=== PATIENT | female | born 1960 | race Caucasian/White ===

== ENCOUNTER 2019-03-09 19:57 | Inpatient (IN) ==
[2019-03-09] MEDS ORDERED: ASPIRIN PO ONE (20:23)
[2019-03-09] MEDS ORDERED: LOPRESSOR IV ONE ×2 (20:24→20:39)
[2019-03-09] MEDS ORDERED: NS 1,000 ML IV ONE (20:25)
--- NOTE | 2019-03-09 20:40 | PROVIDER DOCUMENTATION ---
This chart was entered by Vivian Penny Scribe, acting as scribe for Teddy Mckeon MD. HPI-Abdominal Pain/GI Problem - General Chief Complaint: Abdominal Pain Stated Complaint: V/D/ Time Seen by Provider: 03/09/19 20:20 Source: patient Allergies/Adverse Reactions: Patient Allergies Allergy/AdvReac Type Severity Reaction Status Date / Time No Known Allergies Allergy Verified 03/09/19 20:04 - History of Present Illness-ABD Nature of Presenting Problems: pt is a 58 yowf who presents wuth rapid heart rate in 150's,nausea, vomiting, diarrhea,intermittent chest pain, and cold sweats for past several days pt was recently dx w/pneumonia and stomach virus, on zpac in last week. pt also sts had dysuria sunday and went to herbal shop, was given aquaflora to try and sts that when she took that it made her nvd worse. Pt is a smoker .25/day. occ alcohol user and denies drug use. pt has allergy to penicillin. no pcp. Shortly after arrival patient givne 5mg IV Lopressor with resolution of tachycardia. Severity in ED: reports: mild Onset/Duration: reports: 3 days ago, last week Timing: reports: still present, intermittent (cp) Activities at Onset: reports: none Modifying Factors: improves with: nothing Associated Symptoms: reports: chest pain, diarrhea, genitourinary problems, nausea, vomiting Last BM: unsure Review of Systems - Adult - REVIEW OF SYSTEMS - ADULT Constitutional: reports: see HPI, other (cold sweats) Eyes: reports: no symptoms reported Ears, Nose, Mouth & Throat: reports: no symptoms reported Cardiovascular: reports: see HPI, chest pain. denies: palpitations, poor circulation, syncope Respiratory: reports: no symptoms reported Gastrointestinal: reports: see HPI, diarrhea, nausea, vomiting. denies: difficulty swallowing, frequent heartburn, rectal bleeding Genitourinary: reports: see HPI, dysuria. denies: flank pain, urinary retention, urgency Musculoskeletal: reports: no symptoms reported Integumentary: reports: no symptoms reported Neurological: reports: no symptoms reported Psychiatric: reports: no symptoms reported Endocrine: reports: no symptoms reported Hematologic/Lymphatic: reports: no symptoms reported Allergic/Immunologic: reports: no symptoms reported All Other Systems: Reviewed and Negative Past History - Adult - PAST MEDICAL HISTORY-ADULT Review of Records: reports: Nursing Assessment Review, Medications Reviewed, Social history reviewed & non-contributory. Major Childhood Illnesses: reports: denies history Cardiovascular: reports: arrhythmia Respiratory: reports: pneumonia (last week dx) Gastrointestinal: reports: denies history Obstetrical/Gynecological: reports: denies history Genitourinary: reports: denies history Musculoskeletal: reports: denies history Neurological: reports: denies history Endocrine/Immune: reports: denies history Other Conditions: reports: denies history - PRIOR SURGERIES/PROCEDURES Surgical/Procedure History: reports: hysterectomy, other - IMMUNIZATION STATUS Childhood Immunizations: See Nurse Assessment Flu Vaccine: See Nurse Assessment - FAMILY HISTORY Family History: reviewed, not pertinent - SOCIAL HISTORY Smoking: cigarettes, less than 1 pack/day Provider spent 3-5 mins advising pt. on dangers of tobacco.: Discussed manners to quit use, and f/u contacts for add'l counseling. Substance Use: denies (drug use), alcohol Alcohol Use Frequency: occasionally Physical Exam-General - PHYSICAL EXAM-ADULT Initial Vital Signs Reviewed: Yes - CONSTITUTIONAL General Appearance: alert, no apparent distress, obese. negative: lethargic, slow to respond, obtunded - EYES Eyes: PERRL/EOMI, pink conjunctivae - HEAD, EARS, NOSE, MOUTH & THROAT HENMT: normocephalic/atraumatic, moist mucous membranes - NECK Neck: non-tender, full range of motion, supple, normal inspection - RESPIRATORY Respiratory: chest non-tender, lungs clear, normal breath sounds - CARDIOVASCULAR Cardiovascular: normal peripheral pulses, no edema, no gallop, no JVD, no murmur , tachycardia. negative: regular rate, rhythm, JVD, bradycardia, extra beats, irregularly irregular - GASTROINTESTINAL (ABDOMEN) Abdominal Exam: normal bowel sounds, non tender, soft - LYMPHATIC Lymphatic: no adenopathy - MUSCULOSKELETAL Back Exam: normal inspection, no CVA tenderness, no vertebral tenderness Extremity: normal range of motion, non-tender, normal inspection Peripheral Pulses: radial (R): 2+, radial (L): 2+ - SKIN Integumentary: normal color, normal turgor, warm/dry. negative: diaphoresis - NEUROLOGIC Neurologic: grossly normal, no motor/sensory deficits - PSYCHIATRIC Psych/Mental Status: normal mood/affect, normal thought content, normal thought process, oriented x 3 Progress - PLAN OF CARE/RESULTS Progress/Plan/Lab Results: Vital Signs - 8 hr 03/09/19 20:02 Temperature 98.0 F Pulse Rate 158 H Respiratory Rate 18 Blood Pressure 113/76 O2 Sat by Pulse Oximetry 96 Orders Category Date Time Status Cardiac Monitoring DIRECTED Care 03/09/19 20:24 Active Oxygen Therapy- ED Nursing DIRECTED Care 03/09/19 20:24 Active Saline Loc NOW Care 03/09/19 20:24 Active NPO Diet 03/09/19 20:05 Active CBC WITH DIFF [HEME] Stat Lab 03/09/19 20:05 Ordered CK PROFILE [SP CHEM] Stat Lab 03/09/19 20:24 Uncollected COMPREHENSIVE METABOLIC PANEL [CHEM] Stat Lab 03/09/19 20:05 Ordered LIPASE [CHEM] Stat Lab 03/09/19 20:05 Ordered PRO B-NATRIURETIC PEPTIDE Stat Lab 03/09/19 20:24 Uncollected PROTIME WITH INR [COAG] Stat Lab 03/09/19 20:24 Uncollected PTT [COAG] Stat Lab 03/09/19 20:24 Uncollected TROPONIN T Stat Lab 03/09/19 20:24 Uncollected ua [URINALYSIS PL W/POSS RFLX CULT] [URINALYSIS] Stat Lab 03/09/19 20:23 Uncollected Aspirin Med 03/09/19 20:23 Once 325 mg PO NOW ONE Metoprolol [Lopressor] Med 03/09/19 20:24 Once 5 mg IV NOW ONE Ns 1000 ml IV Bolus X1 Med 03/09/19 20:25 Ordered 0.9% Sodium Chloride Inj [Ns] 1,000 ml IV 999 mls/hr Abd Pain/OB <20 weeks Stat Oth 03/09/19 20:05 Ordered CP/SOB/Palp >45 yrs of Age Stat Oth 03/09/19 20:23 Ordered EKG [EKG] Stat Ther 03/09/19 20:24 Ordered Result Diagrams: 03/09/19 21:18 03/09/19 20:18 - REASSESSMENT Reassessment #1 Time Reassessed: 21:00 Status: improving (pt svt converted w/5mg IV lopressor) - EKG 1 Time of EKG reading by physician:: 20:54 EKG Read and Signed by:: Teddy Mckeon EKG Interpretation (*Must complete 3 of following elements*): Abnormal Rate: 94 Rhythm: NSR [place]: left QRS: LBB OH Interval: normal ST Wave: normal - XRAY 1 XRAY Study: Chest Impression: See EMR Report (CHEST-PORTABLE - 03/09/2019 INDICATION: cp, tachy COMPARISON: None FINDINGS: There is mild cardiomegaly. Pulmonary vascularity is grossly normal. No infiltrates or edema. No pneumothorax or pleural effusion. There is a calcified granuloma in the left apex. IMPRESSION: Mild cardiomegaly. Electronically signed by Rashid Wang 03/09/2019 9:14 PM) Comparison with other Films: no prior study XRAY Interpretation: cardiomegaly, increased vascular markings - CT/MRI 1 CT Study: Abdomen, Angiogram, Pelvis, other Impression: Abnormal, See EMR Report (Impression: CHF. Nonspecific mild to moderate mediastinal adenopathy and mild hilar adenopathy. Old grnaulomatous disease. IMpression: Passive congestion of the liver, mild fatty liver. MIld diffuse gallbladder wall thickening w/out calcified gallstones identified. COnsiderations would include passive congestion related gallbladder wall thickening or cholecystitis. Consider right upper quadrant ultrasound for further eval.) Comparison with other Films: no prior study CT Results: CT chest:CHF, no PE - CONSULTS/PCP/HOSPITALIST Notification #1 *Consult/PCP/Hospitalist*: Dr. Coello/ [facility] hospitalist Time Discussed: 01:16 Consult Disposition: Admit Departure - Departure Date of Disposition Decision: 03/10/19 Time of Disposition Decision: 00:25 DIAGNOSIS: Paroxysmal tachycardia, Gallbladder disease CHF (congestive heart failure) Qualifiers: Heart failure type: other Qualified Code(s): I50.9 - Heart failure, unspecified Abdominal pain Qualifiers: Abdominal location: generalized Qualified Code(s): R10.84 - Generalized abdominal pain Disposition: ADMITTED INPATIENT 09 Certified Medical Emergency: Emergent Condition: Stable Referrals and Follow-Ups: None,PCP [Primary Care Provider] - - Critical Care Note This patient required my direct & personal management of CC.: No Attestation - Physician/ ROBERTA Attestation Patient care was provided by Advanced Practice Provider:: No The physician spent face to face time with patient:: Yes Advanced Practice Provider documentation review:: Supervising physician onsite and consulted in the evaluation and care of this patient. The physician did have a face to face encounter with the patient. This chart was documented by the indicated scribe, (Vivian Penny Scribe) and accurately reflects the services I performed and decisions made by me, Teddy Mckeon MD, as attested by the provider's signature.
[2019-03-09 20:49] LABS: INR 1.13; PROTIME 15.1 Seconds (11.0-16.0)
[2019-03-09 20:50] LABS: AGAP 14; ALKALINE PHOSPHATASE 124 U/L (32-104); BUN 23 mg/dL (8-22); CALCIUM 9.5 mg/dL (8.8-10.2); CHLORIDE 103 mmol/L (98-107); COSMO 279; CREATININE 0.7 mg/dL (0.5-0.9); ESTIMATED GFR > 60; GLUCOSE 151 mg/dL (70-104); GOT 179 U/L (10-30); GPT 203 U/L (10-36); LIPASE 23 U/L (13-60); POTASSIUM 4.4 mmol/L (3.5-5.1); PTT 32.3 Seconds (22.3-41.8); SODIUM 136 mmol/L (136-145); TCO2 19 mmol/L (25-35); TOTAL PROTEIN 6.5 g/dL (6.3-8.3)
--- NOTE | 2019-03-09 21:17 | Diag Imaging Result Doc PS360 ---
CHEST-PORTABLE - 03/09/2019 INDICATION: cp, tachy COMPARISON: None FINDINGS: There is mild cardiomegaly. Pulmonary vascularity is grossly normal. No infiltrates or edema. No pneumothorax or pleural effusion. There is a calcified granuloma in the left apex. IMPRESSION: Mild cardiomegaly. Electronically signed by Rashid Wang 03/09/2019 9:14 PM
[2019-03-09 21:29] LABS: BASO# 0.03 X1000 (0.0-0.2); BASO% 0.4 % (0.0-0.8); EOS# 0.08 X1000 (0.0-0.7); EOS% 1.1 % (0.0-10.0); HEMATOCRIT 32.2 % (37.0-47.0); HEMOGLOBIN 9.9 g/dL (12.0-16.0); IMM GRAN# 0.03 X1000 (0.0-0.04); IMM GRAN% 0.4 % (0.0-0.5); LYMPH# 1.25 X1000 (1.2-3.4); LYMPH% 17.1 % (20.5-51.1); MCH 27.7 PG (27-31); MCHC 30.7 g/dL (33-37); MCV 89.9 FL (81-99); MONO# 0.73 X1000 (0.11-0.59); MPV 11.6 FL (7.4-10.4); NEUT# 5.18 X1000 (1.4-6.5); PLT 209 X1000 (130-400); RBC 3.58 XMIL (4.2-5.4); RDW 15.6 % (11.5-14.5)
[2019-03-09 21:29] LABS: BILIRUBIN URINE NEGATIVE (NEGATIVE); BLOOD URINE NEGATIVE (NEGATIVE); CLARITY CLEAR (CLEAR); COLOR YELLOW; GLUCOSE URINE NEGATIVE (NEGATIVE); KETONE URINE TRACE mg/dL (NEGATIVE); LEUKOCYTES URINE TRACE (NEGATIVE); NITRITE URINE NEGATIVE (NEGATIVE); PROTEIN URINE 1+(30 mg/dL) mg/dL (NEGATIVE); UROBILINOGEN URINE 1 mg/dL
[2019-03-09 21:35] LABS: URINE SOURCE CLEAN CATCH
[2019-03-09 21:36] LABS: URINE BACTERIA 2+ /HFP; URINE CAST NONE SEEN /LPF; URINE CRYSTAL CA OXALATE PRESENT /HPF; URINE EPITHELIAL CELLS >10 /HPF (<10); URINE RBC <10 /HPF (<10); URINE WBC <10 /HPF (<10); URINE YEAST NONE SEEN /HPF
--- NOTE | 2019-03-09 21:37 | EKG Report ---
Test Performed on : 03/09/2019 8:20:26 PM Test Reason : tachy] Blood Pressure : / mmHG Vent. Rate : 153 BPM Atrial Rate : 153 BPM P-R Int : 094 ms QRS Dur : 150 ms QT Int : 302 ms P-R-T Axes : 000 -53 111 degrees QTc Int : 482 ms Sinus tachycardia. with short WA Left axis deviation Left bundle branch block Abnormal ECG No previous ECGs available Unconfirmed Result
--- NOTE | 2019-03-09 21:38 | EKG Report ---
Test Performed on : 03/09/2019 8:53:24 PM Test Reason : tachy] Blood Pressure : / mmHG Vent. Rate : 094 BPM Atrial Rate : 094 BPM P-R Int : 128 ms QRS Dur : 154 ms QT Int : 428 ms P-R-T Axes : 038 -40 092 degrees QTc Int : 535 ms Normal sinus rhythm. Left axis deviation Left bundle branch block Abnormal ECG When compared with ECG of 09-MAR-2019 20:20, (Unconfirmed) Vent. rate has decreased BY 59 BPM Unconfirmed Result
[2019-03-09] MEDS ORDERED: LASIX IV ONE (23:03)
[2019-03-10] MEDS ORDERED: ZOSYN 3.375 GM in NS 50 ML IV ONE (00:30)
[2019-03-10] MEDS ORDERED: LASIX IV SCH (01:45)
[2019-03-10] MEDS ORDERED: NS 1,000 ML IV SCH (04:30)
--- NOTE | 2019-03-10 07:04 | HISTORY AND PHYSICAL ---
CHIEF COMPLAINT: Nausea and vomiting as well as diarrhea along with abdominal pains of recent onset. HISTORY OF PRESENT ILLNESS: Ms. Ralf Rose is a 58-year-old female, who has a history of herpes as well as peptic ulcer disease. The patient is not a good historian. However, she indicates in the last couple of weeks she has been back and forth with the medical clinic because of respiratory as well as GI symptoms. She has now decided to present to [place] [facility] because of nausea, vomiting, and diarrhea, as well as abdominal pains. She also describes having dysuria along with dizziness. When she presented to the ER, heart rate was about 158. The patient did receive 5 mg of IV Lopressor with resolution of the tachycardia. She had a CT scan of the abdomen done, and showed evidence of mild diffuse gallbladder wall thickening with consideration being that of passive congestion related to gallbladder wall thickening or cholecystitis. The patient has now been referred to [facility] for surgical evaluation. PAST MEDICAL HISTORY: Herpes as well as peptic ulcer disease. SOCIAL HISTORY: She does have a history of drug use in the past. However, she has quit drug use at this time. No alcohol. She smokes cigarettes. ALLERGIES: She indicates that she is allergic to an antibiotic. She does not know the name. FAMILY HISTORY: Positive for diabetes as well as hypertension. PAST SURGICAL HISTORY: She has had section as well as a list of surgery for laser surgery for precancerous lesion in the cervix. REVIEW OF SYSTEMS: Constitutional: No fevers. 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 Eyes: Blurred vision. ENT: No sore throat or hearing loss. Cardiovascular: She has chest pain. Respiratory: She has cough. : She has dysuria. Musculoskeletal: She has joint pains. Endocrine: No thyroid disease or diabetes. Psychiatric: She does have some depression. Dermatology: No skin lesions. Hematology: No bleeding problems. Allergy/Immunology: No symptoms suggestive of allergic rhinitis. PHYSICAL EXAMINATION: VITALS: Temperature 97.7 degrees, pulse 96, respirations 20, blood pressure 169/73, and oxygen saturation is 98%. HEENT: She is atraumatic, normocephalic. Pupils are equal, and poorly reactive to light. She is anicteric. Extraocular movements intact. No oral lesions noted. NECK: No lymphadenopathy or thyromegaly. CARDIOVASCULAR: S1-S2 tachycardic. RESPIRATORY: Evidence of good air entry bilaterally. ABDOMEN: Soft, nontender. No masses felt. EXTREMITIES: No evidence of edema. CENTRAL NERVOUS SYSTEM: No obvious focal deficit noted. LABORATORY DATA: WBC 7.3, hematocrit 32.2, and platelet count 209,000. INR is 1.13. Sodium 136, potassium 4.4, chloride 103, bicarb 19, BUN is 23, and creatinine 0.7, total bilirubin, 1.10. AST 179, ALT 203, alkaline phosphatase 124. ProBNP is 5094. UA shows 2+ bacteria. We traced WBCs. EKG shows normal sinus rhythm with left axis deviation, and also left bundle-branch block. Chest x-ray shows mild cardiomegaly. CTA of the abdomen and pelvis shows evidence of passive congestion of the liver with mild fatty liver, mild diffuse gallbladder wall thickening without calcified gallstones identified. Consideration to include passive congestion related to gallbladder wall thickening or cholecystitis. CT scan of the chest shows evidence of CHF with no evidence of PE. ASSESSMENT AND PLAN: 1. Acute gastroenteritis. Maintain patient on clear liquids, IV fluids, antiemetics, and then stool workup for WBC O P culture as well as C diff. 2. Paroxysmal tachycardia with left bundle branch block. We will place patient on telemetry, and follow up on serial cardiac enzymes and get Cardiology consult. 3. Elevated D-dimer. Chest CT does not show any evidence of PE. We will get Doppler studies of the lower extremities. 4. Probable CHF based on chest x-ray findings. CT scan of the chest finding as well as proBNP. We will request getting a 2D echo of the heart and we will use diuretics as needed. 5. Abnormal liver function test. Check hepatitis panel as well as abdominal ultrasound. 6. Probable gallbladder disease. I suspect that findings noted on abdominal CT is more likely due to passive congestion related to gallbladder wall thickening done rather acute cholecystitis. In any case, I have requested an abdominal ultrasound and also we will get surgical evaluation. 7. Dysuria. Check urine culture. 8. Peptic ulcer disease. Maintain patient on proton pump inhibitor. 9. Deep vein thrombosis prophylaxis. Sequential compression devices. cc: Hoang Coello MD [facility]
--- NOTE | 2019-03-10 07:35 | Diag Imaging Result Doc PS360 ---
EXAM: CT ANGIOGRAM THORAX/ABD/PELVIS INDICATION: sob,elevated d-dimer TECHNIQUE: This exam was performed using automated exposure control, adjustment of mA or kV according to patient size, and/or use of iterative reconstruction technique. Thin section axial images through the chest and 3-D MIPS were obtained. Standard axial images and coronal reformats through the abdomen and pelvis were obtained. COMPARISON: None. FINDINGS: CTA CHEST: There is no evidence of pulmonary embolism. There is no evidence of thoracic aortic aneurysm. The heart appears moderately enlarged. There is a calcified left hilar lymph node indicating prior granulomatous disease. There is mild to moderate mediastinal and hilar lymphadenopathy. This is nonspecific. There are a couple of calcified granulomata in the left upper lobe. There is subsegmental atelectasis in the lingula. There is mosaic attenuation seen throughout both lungs suggesting air trapping versus mild edema. There is a 7 mm noncalcified nodule at the periphery of the right lower lung zone. It is indeterminate but could represent a noncalcified granuloma. There is no pleural fluid collection and no pneumothorax. CT ABDOMEN/PELVIS: The gallbladder wall is diffusely thickened suggesting cholecystitis. No radiopaque gallstones can be identified. There is mild intrahepatic periportal edema suggesting passive congestion. The liver is grossly unremarkable, otherwise. No biliary dilatation is appreciated. The spleen, pancreas, adrenal glands, and kidneys are grossly unremarkable. Urinary bladder is largely nondistended and is grossly unremarkable, otherwise. The reproductive tract is grossly unremarkable as imaged. The appendix appears normal. The remainder of the GI tract is grossly unremarkable. IMPRESSION: 1.Cardiomegaly. 2.Mosaic attenuation throughout the chest suggesting air trapping and/or mild pulmonary edema. 3.Mild to moderate mediastinal and hilar lymphadenopathy, nonspecific. 4.Diffuse gallbladder wall thickening suggesting cholecystitis. Please correlate clinically. 5.Other incidental/nonacute findings detailed above. No evidence of pulmonary embolism. Electronically signed by Mitchell Penny 03/10/2019 7:32 AM
--- NOTE | 2019-03-10 07:53 | Diag Imaging Result Doc PS360 ---
EXAM: US ABDOMEN-COMPLETE 03/10/2019 HISTORY: abn lfts TECHNIQUE: Abdominal ultrasound COMMENT: The pancreatic head is normal in appearance as is the body. The tail is obscured. The visualized portions of the aorta and inferior vena cava are within normal limits. The liver is unremarkable in appearance. There is antegrade flow in the portal vein. The gallbladder demonstrates mild thickening of the wall without evidence of stones. There is a positive sonographic Mosley sign. There is no evidence of biliary dilatation the common bile duct measuring less than 4 mm. The kidneys are without evidence of hydronephrosis or mass. The spleen is not enlarged. There are no abnormal fluid collections. IMPRESSION: The possibility of acalculous cholecystitis cannot be excluded. Electronically signed by Angel Bledsoe 03/10/2019 7:51 AM
[2019-03-10] MEDS: PROTONIX PO SCH (08:44)
[2019-03-10] MEDS ORDERED: LOPRESSOR PO SCH (09:00)
--- NOTE | 2019-03-10 09:58 | PROGRESS NOTE ---
DATE: 03/10/2019 SUBJECTIVE: She reports that she feels a little better today. She has complained of diarrhea and some nausea; diarrhea apparently for 6 weeks, nausea for several days. She has some burning with urination. This is a 58-year-old female with a history of herpetic, as well as peptic ulcer disease. She is not a good historian. She has been back and forth to the Medical Clinic because of respiratory, as well as GI symptoms. Decided to present to the [place] ER because of nausea, vomiting, diarrhea, abdominal wall pains. Described having dysuria along with dizziness. Presented to the emergency room with heart rate of 158, received 5 mg IV Lopressor with resolution of her tachycardia. CT scan of the abdomen showed evidence of mild diffuse gallbladder wall thickening, consideration being passive congestion related to gallbladder wall thickening and cholecystitis, so came to here to [place]. She does have a history of drug use in the past, however she has quit drugs. She does not admit to any drug use now. She has herpes, as well as peptic ulcer disease. Today on exam, she is up, sitting up. She is drinking clear liquids without any problems. OBJECTIVE: Vital Signs: Temperature 98.9 degrees, pulse 120, respirations 18, blood pressure 129/85. Eyes: Pupils are equal and round. Lungs: Clear in all lung [place]. Cardiovascular exam: Regular rhythm and rate without murmur or S3. Abdomen: Soft. Skin: Warm and dry. LABORATORY DATA: On reviewing lab, white count 7300, hematocrit 32, platelet count 209,000. Sodium 136, potassium 4.4, chloride 103, bicarbonate 19. BUN 23, creatinine 0.7. Blood sugar 151. AST is 179, ALT is 203, alkaline phosphatase 124. Troponin 1st set was less than 0.01, 2nd set was 0.019. Urinalysis unremarkable, except for 2+ bacteria. X-RAYS: 1. Chest x-ray: Mild cardiomegaly, otherwise lung [place] were clear. 2. Chest and abdominal pelvic CT angiogram: Cardiomegaly, mosaic attenuation throughout the chest suggestive of trapping or mild pulmonary edema. Mild to moderate mediastinal hilar lymphadenopathy, nonspecific. Diffuse gallbladder wall thickening suggestive of cholecystitis. 3. Abdominal ultrasound: The possibility of acalculous cholecystitis cannot be excluded. ASSESSMENT AND PLAN: 1. Dr. Madrid has been consulted. Cardiology is involved, Dr. Em. The patient currently getting normal saline at 75 mL an hour, on Zosyn 3.375 grams intravenous, got 1 dose yesterday, Lopressor 50 mg b.i.d. So, possibility of cholecystitis acalculous. We will see what Dr. Madrid says. 2. Some tachycardia; sounds like it was sinus tachycardia. Her rate appears to be controlled. 3. She complains of dysuria. We will see what cultures reveal. She has a set of blood cultures and urine culture. 4. Nausea and vomiting. She is on clear liquids at this time. Nausea seems to be better. She is complaining of loose stools. I think we can send a stool for Clostridium difficile. cc: Tom Rick MD
--- NOTE | 2019-03-10 10:26 | EKG Report ---
Test Performed on : 03/10/2019 10:06:38 AM Test Reason : tachycardia Blood Pressure : / mmHG Vent. Rate : 120 BPM Atrial Rate : 120 BPM P-R Int : 118 ms QRS Dur : 158 ms QT Int : 380 ms P-R-T Axes : 044 -33 092 degrees QTc Int : 537 ms Sinus tachycardia. Left axis deviation Left bundle branch block Abnormal ECG When compared with ECG of 09-MAR-2019 20:53, (Unconfirmed) T wave inversion more evident in Lateral leads Unconfirmed Result
[2019-03-10] MEDS: ZOFRAN IV PRN ×2 (11:47→21:49)
--- NOTE | 2019-03-10 11:50 | CARDIOLOGY CONSULTATION ---
DATE: 03/10/2019 CHIEF COMPLAINT: Nausea, vomiting, abdominal pain. HISTORY OF PRESENT ILLNESS: The patient is a 58-year-old white female who presents with the above complaints. She is an extremely difficult historian. It sounds like for the last 2 to 3 weeks or so, she has had severe episodes of nausea and vomiting. The nausea has more recently persisted throughout the day. She is having 1 to 2 bouts of vomiting. She has had significant bouts of diarrhea that have been occurring throughout the day. She has had poor p.o. intake over that time course. It sounds like she has had some presentations to urgent care settings for evaluation of this. She reports still having a gallbladder. She is not aware of any fevers that she has had. She has no overt chest pain. When asked where her pain is, she seems to be pointing in the left upper epigastric area, as well as the right upper quadrants. PAST MEDICAL HISTORY: Significant for peptic ulcer disease per the patient. She reports no other history. SOCIAL HISTORY: She does smoke. FAMILY HISTORY: Significant for hypertension. REVIEW OF SYSTEMS: A 10-system review of systems is negative, except for those things mentioned in the HPI. PHYSICAL EXAMINATION: Vital Signs: She is afebrile. Heart rate has been running anywhere from the 90s to the low 100s predominantly. Her blood pressure is 129/85. On presentation, it was 113/76. General: She is in moderate distress secondary to abdominal pain. HEENT: Oropharynx is moist. She has poor dentition. Eye examination shows pink conjunctivae, white sclerae. Neck: No obvious thyromegaly or thyroid tenderness. Cardiovascular: She sounds to be in a regular rate and rhythm. She has no obvious murmurs. She has no S3. She has no lower extremity edema. Chest: Sounds clear bilaterally. She has no increased work of breathing. Abdomen: Diffusely tender, but much more so in the epigastric, and more severely in the right upper quadrant. She does not have any overt rebound. Bowel sounds are present. Skin: Warm and dry throughout. Neurological: She is moving all extremities well. She has no lateralizing deficits. Psychiatric: Alert, orient, pleasant. Normal mood and affect. PERTINENT DATA: Chest, abdomen, and pelvis CTA shows cardiomegaly. There is mosaic attenuation throughout the chest, suggesting air trapping or mild pulmonary edema. She has [id number] mediastinal and hilar lymphadenopathy that is nonspecific. She has diffuse gallbladder wall thickening, suggesting cholecystitis. Her chest x-ray demonstrates mild cardiomegaly. Her EKG at 2052 yesterday shows sinus rhythm with a left bundle-branch block. Her subsequent EKG on 03/10/2019 at 1006 shows sinus tachycardia with a left bundle-branch block. I do not have any old EKGs to compare to. Her laboratory data demonstrates a white count of 7.3 yesterday, hematocrit 32, platelet count 209,000. Her D-dimer is 1.84. Her sodium is 136, potassium 4.4, BUN 23, creatinine 0.7. AST 179, ALT 203. Her proBNP is 5094. Her troponin is normal. Her albumin is 4.0. Her lipase was 23. ASSESSMENT: Ms. Rose is a 58-year-old female who presents with abdominal pain, nausea, and vomiting. PLAN: At this point, we will check an echocardiogram. I believe most likely, her symptoms are suggestive of cholecystitis as evidenced by her CTA. Will follow up on the results of the echo. She has a left bundle-branch block, but given normal cardiac enzymes, it is likely not acute. We will follow up and evaluate wall motion via the echo. cc: Mick Em MD
--- NOTE | 2019-03-10 20:36 | ECHO REPORT ---
ORDER DATE: 03/10/2019 MEASUREMENTS: Septal thickness 0.8, left ventricular internal diameter in diastole 7.1, posterior wall thickness 0.8, left ventricular internal diameter in systole 6.5, aortic root 3.0, left atrium 4.4. SUMMARY: 1. Adequate quality study. Intravenous echo contrast agent Optison was utilized to enhance endocardial definition. 2. Aortic valve is trileaflet and opens normally on 2-dimensional images. The peak gradient across the aortic valve is less than 5 mmHg. Mitral, tricuspid, and pulmonic valves are without evidence of structural abnormality with moderate to severe mitral regurgitation in the setting of left ventricular enlargement, moderate to severe tricuspid regurgitation in setting of right ventricular enlargement, and mild pulmonic insufficiency. The estimated systolic PA pressure by Doppler is 70 to 75 mmHg suggesting, moderate to severe pulmonary hypertension. The aortic root is normal size. 3. Moderate left ventricular enlargement with normal wall thickness demonstrated. The estimated left ventricular ejection fraction is approximately 10 to 15 percent in the setting of akinesis of the anteroseptal region, septal dyskinesis, akinesis of the basal and mid inferior vera, and mild inferolateral hypokinesis. The left atrium is mildly to moderately enlarged. The right atrium is mildly enlarged. The right ventricle is mildly enlarged. 4. No pericardial effusion. 5. Appearance of inferior vena cava suggests elevated central venous pressure. CONCLUSIONS: 1. Moderate to severe mitral regurgitation in the setting of left ventricular enlargement. 2. Moderate to severe tricuspid regurgitation with moderate to severe pulmonary hypertension by Doppler. 3. Moderate left ventricular enlargement with estimated left ventricular ejection fraction approximately 10 to 15 percent, with septal dyskinesis, anteroseptal akinesis, basal to mid inferior akinesis, and mild inferolateral hypokinesis. 4. Moderate left atrial enlargement. 5. Mild right atrial enlargement and mild right ventricular enlargement. 6. Elevated central venous pressure is suggested. cc: MD Hoang Wing MD
[2019-03-10] MEDS ORDERED: COZAAR PO SCH (21:00)
--- NOTE | 2019-03-10 21:47 | GENERAL SURGERY CONSULTATION ---
DATE: 03/10/2019 CHIEF COMPLAINT: Nausea, vomiting, and diarrhea. REASON FOR CONSULTATION: Possible gallbladder disease. HISTORY OF PRESENT ILLNESS: This 58-year-old female who presents with approximately 48 hours of nausea, vomiting, and diarrhea. She has had some colicky abdominal pain. She denies any sick contacts. No unusual diet of late. She has chronic respiratory symptoms. Some vague GI complaints in the past. She denies any GI bleeding. She has never had a colonoscopy. She underwent a cardiac workup. CT scan showed some pulmonary edema and possible underlying lung disease and thickening of the gallbladder. Followup ultrasound showed thickening of the gallbladder but no stones and normal caliber common bile duct. She apparently has a history of trauma that led to a cardiac arrest in the distant past at a young age. She does not see a PCP regularly. PAST MEDICAL HISTORY: Peptic ulcer disease and herpes. SURGICAL HISTORY: She has had and apparently LEEP type procedure for precancerous cervical cancer. SOCIAL HISTORY: She does not work. She does have a history of drugs in the past. She does smoke cigarettes. Denies alcohol. FAMILY HISTORY: Diabetes and hypertension. MEDICATIONS: Negative for anticoagulants. REVIEW OF SYSTEMS: Ten point review of system was performed and negative except for what is mentioned in the HPI. PHYSICAL EXAMINATION: Vital Signs: She is afebrile. Pulse 87, blood pressure 102/73, oxygen saturation 99% on room air. General: She is moving about the room without any discomfort and in no acute distress. HEENT: No scleral icterus. Neck: No cervical mass. Cardiovascular: Normal rate. Pulmonary: No increased work of breathing. Abdomen: Soft, nontender. Integument: Warm, dry without jaundice. Psychiatric: Appropriate affect. Neurologic: No gross deficits or asterixis. LABORATORY DATA: White count normal at 7, hematocrit 32, platelets 209,000. INR is 1.13. Creatinine 0.7. Her bilirubin was 1.10. AST and ALT were elevated at 179 and 203. Alkaline phosphatase 124. Troponins have been negative. Her proBNP was 5094. Lactate was normal at 1.2. Lipase 23. Urinalysis shows some trace white blood cells, negative for nitrites and leukocytes. IMAGING: I reviewed her CT scan and her ultrasound. ASSESSMENT AND PLAN: This is a 58-year-old female who presented with vague gastrointestinal complaints. Currently, her symptoms seem to have resolved. There is some suggestion of gallbladder wall thickening on both her CT scan and her ultrasound. She is also being worked up from a cardiology perspective and undergoing echocardiogram for concerns of volume overload and heart failure. We will follow this workup along as I do not have any acute findings on her abdominal examination, but she may ultimately benefit from a cholecystectomy. I will follow along her cardiac workup for plans for possible cholecystectomy in the future. cc: Elie Barrientos MD
[2019-03-10] MEDS: LOPRESSOR PO SCH (21:48)
[2019-03-11 07:09] LABS: IRON SATURATION 14 %; TIBC 336 ug/dL; TOTAL IRON 46 ug/dL (49-151); UNBOUND IRON 290 ug/dL (112-346)
[2019-03-11] MEDS: PROTONIX PO SCH (07:12)
[2019-03-11 07:14] LABS: AGAP 13; BUN 22 mg/dL (8-22); CHLORIDE 100 mmol/L (98-107); COSMO 274; CREATININE 0.8 mg/dL (0.5-0.9); ESTIMATED GFR > 60; GLUCOSE 113 mg/dL (70-104); MAGNESIUM 1.8 mg/dL (1.5-2.7); POTASSIUM 3.9 mmol/L (3.5-5.1); SODIUM 135 mmol/L (136-145); TCO2 22 mmol/L (25-35)
[2019-03-11 07:28] LABS: FERRITIN 358 ng/mL (13-150)
--- NOTE | 2019-03-11 09:45 | PROGRESS NOTE ---
DATE: 03/11/2019 SUBJECTIVE: Ms Rose says that she feels worse. Feels there is more sour taste. She does not want to take proton pump inhibitors. Obviously she is concerned about her gallbladder. OBJECTIVE: Temperature 97.5 degrees, pulse 120, respirations 24, blood pressure 106/77. Pupils are equal and round. Lungs are clear in all lung [place]. Cardiovascular exam: Regular rhythm and rate without murmur or S3. ASSESSMENT AND PLAN: 1. A 58-year-old presented with vague gastrointestinal complaints. Currently her symptoms seem to have resolved but she states feels more sour today. Some suggestive of gallbladder thickening on both her CT and ultrasound. She is also being worked up at the present time with Cardiology. 2. Pulmonary venous hypertension. Question of some volume overload. Cardiology involved. 3. Sounds like she has acid reflux type symptoms. She does not like to take the stomach medicines. She is on Protonix 40 mg daily. She is on metoprolol 25 mg b.i.d., Cozaar 12.5 mg at bedtime, Lasix 40 mg IV daily. Her chest x-ray from 03/09/2019, mild cardiomegaly. We will repeat another chest x-ray in the morning. cc: Tom Rick MD
[2019-03-11] MEDS: LASIX IV SCH (09:46)
[2019-03-11] MEDS: LOPRESSOR PO SCH ×2 (09:46→21:13)
[2019-03-11] MEDS: ZOFRAN IV PRN ×3 (10:19→23:53)
--- NOTE | 2019-03-11 11:13 | Diag Imaging Result Doc PS360 ---
EXAM: CHEST-2 VIEWS 03/11/2019 HISTORY: pulmonary hypertension TECHNIQUE: PA and lateral chest COMMENT: There is cardiomegaly and increased pulmonary vascularity. There is interstitial pulmonary edema with some alveolar opacity in the left base. This is much worse than on 03/09/2019. IMPRESSION: Pulmonary edema and cardiomegaly. Electronically signed by Angel Bledsoe 03/11/2019 11:11 AM
[2019-03-11 11:27] LABS: HEMATOCRIT 35.4 % (37.0-47.0); HEMOGLOBIN 10.9 g/dL (12.0-16.0); MCHC 30.8 g/dL (33-37); MPV 11.8 FL (7.4-10.4); RBC 3.89 XMIL (4.2-5.4); RDW 15.7 % (11.5-14.5); WBC 6.43 X1000 (4.8-10.8)
--- NOTE | 2019-03-11 12:08 | EKG Report ---
Test Performed on : 03/11/2019 11:45:08 AM Test Reason : chest pain Blood Pressure : / mmHG Vent. Rate : 092 BPM Atrial Rate : 092 BPM P-R Int : 138 ms QRS Dur : 162 ms QT Int : 428 ms P-R-T Axes : 036 -32 097 degrees QTc Int : 529 ms Normal sinus rhythm. Left axis deviation Left bundle branch block Abnormal ECG When compared with ECG of 10-MAR-2019 10:06, No significant change was found Confirmed by Eliseo MELGAR, P.J.M ([id number]) on 03/12/2019 7:56:30 PM
--- NOTE | 2019-03-11 18:51 | Extremity Venous Study ---
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 REQUESTING PHYSICIAN: Hoang Coello MD INDICATIONS: Elevated D-dimer. FINDINGS: The deep and superficial veins of the bilateral lower extremities were visualized along their course. All vessels were compressible with forward flow, although the flow does appear pulsatile with no evidence of intraluminal thrombus. SUMMARY: No deep or superficial venous thrombosis in bilateral lower extremities. Pulsatile waveforms would suggest a more central process for venous hypertension. cc: MD Hoang Alonso MD
[2019-03-11] MEDS: COZAAR PO SCH (21:13)
--- NOTE | 2019-03-11 22:00 | CARDIOLOGY PROGRESS NOTE ---
DATE: 03/11/2019 SUBJECTIVE: The patient continues to have some episodes of abdominal pain. Presently she has no complaints. OBJECTIVE: On physical examination she is afebrile. Her heart rates are fluctuant. She seems anywhere from the 80s to the 120s. Blood pressure 127/85 most recently, but she did have some systolics in the 90s. Her intake and output are difficult to track, as she is limited intake and output recorded. Generally she is in no acute distress. Cardiovascularly she sounds to be in a regular rate and rhythm. She has warm and well-perfused extremities with no edema. Her chest exam is clear bilaterally. She has no increased work of breathing. Her abdomen is soft, but diffusely tender to palpation. LABORATORY DATA: Her proBNP is 3841, which is down from 5094. Sodium 135, potassium 3.9, BUN 22, creatinine 0.8. Her ferritin was 358. Normal TSH and free T4. ASSESSMENT: Ms. Rose is a 58-year-old female who presents with abdominal pain. PLAN: Her echocardiogram demonstrated an EF of 10% to 15%; moderate to severe MR; dilated left ventricle. We have added in medications to her regimen in the form of losartan, metoprolol and Lasix. We will continue to try IV diuretics. Check her labs in the morning. Tentative plan will be to perform a cardiac catheterization prior to discharge. cc: Mick Em MD
--- NOTE | 2019-03-11 22:25 | GENERAL SURGERY PROGRESS NOTE ---
DATE: 03/11/2019 SUBJECTIVE: She seems okay. She is not really complaining of any abdominal pain. She has had some chest pain and left arm pain. She denies any further diarrhea. No fevers. OBJECTIVE: Vital Signs: Pulse has been 80s to 90s overnight, but as of this morning it is starting to creep up to the 120s. Blood pressure is 106/77, oxygen saturation is 98% on 3 L. General: She is alert. HEENT: No scleral icterus. Cardiovascular: Normal rate. Abdomen: Soft,nontender. Integument: Warm and dry without jaundice. LABORATORY DATA: I reviewed her labs. White count remains normal at 6, hematocrit is 35, creatinine is 0.8. Her troponins are normal. Her proBNP is downtrending. IMAGING: I have got a preliminary report on her echocardiogram that shows profound cardiomyopathy with an ejection fraction of 10% to 15%. ASSESSMENT AND PLAN: Based on these findings I suspect that she has if anything GI related causing symptoms. It is hepatic congestion from her heart failure. She would be very high risk for a cholecystectomy given the lack of her gallstones. I would recommend optimization of her cardiac output. Her abdominal exam is benign. She does not have peritonitis and we will follow along, but based off her echocardiogram she has severe mitral regurgitation, severe tricuspid regurgitation, left ventricular enlargement with hypokinesis, an ejection fraction of 10% to 15, and elevation of her central venous pressures. cc: Elie Barrientos MD
[2019-03-12 07:02] LABS: AGAP 12; ALB/GLOB RATIO 1.4; ALBUMIN 3.3 g/dL (3.5-5.0); ALKALINE PHOSPHATASE 82 U/L (32-104); BUN 17 mg/dL (8-22); CALCIUM 8.7 mg/dL (8.8-10.2); CHLORIDE 99 mmol/L (98-107); COSMO 270; CREATININE 0.8 mg/dL (0.5-0.9); ESTIMATED GFR > 60; GLUCOSE 102 mg/dL (70-104); GOT 94 U/L (10-30); GPT 139 U/L (10-36); POTASSIUM 3.4 mmol/L (3.5-5.1); SODIUM 134 mmol/L (136-145); TCO2 23 mmol/L (25-35); TOTAL BILIRUBIN 0.84 mg/dL (0.20-1.00); TOTAL PROTEIN 5.7 g/dL (6.3-8.3)
--- NOTE | 2019-03-12 07:59 | EKG Report ---
Test Performed on : 03/12/2019 06:47:14 AM Test Reason : chest pain Blood Pressure : / mmHG Vent. Rate : 073 BPM Atrial Rate : 073 BPM P-R Int : 162 ms QRS Dur : 166 ms QT Int : 472 ms P-R-T Axes : 062 -29 097 degrees QTc Int : 519 ms Normal sinus rhythm. Possible Left atrial enlargement Left bundle branch block Abnormal ECG When compared with ECG of 11-MAR-2019 11:45, (Unconfirmed) No significant change was found Confirmed by Eliseo MELGAR, P.J.M ([id number]) on 03/12/2019 7:58:27 PM
--- NOTE | 2019-03-12 10:03 | PROGRESS NOTE ---
DATE: 03/12/2019 SUBJECTIVE: Ms. Rose still feels miserable. She is nauseated and still has discomfort in the right upper quadrant, tenderness in the right upper quadrant. Remains afebrile. OBJECTIVE: Vital signs: Temperature 98 degrees, 84 pulse, 20 respirations, 110/60. Lungs: Clear in all lung [place]. Cardiovascular: Regular rhythm and rate without murmur or S3. Abdomen: Soft. Skin: Warm and dry. Tenderness in the right upper quadrant and epigastric area. ASSESSMENT AND PLAN: 1. Gastrointestinal-related symptoms. Suspect that she would be a high risk for cholecystectomy given her lack of gallstones, so want to optimize her cardiac output. Dr. Barrientos following. 2. Profound cardiomyopathy with ejection fraction 10 to 15 percent. She has severe mitral regurgitation, dilated left ventricle, so Dr. Em is following. Cardiology has added medication to her regimen, losartan, metoprolol, and Lasix. Tentative plan is to do a heart catheterization before she is discharged home. REVIEW OF HER ORDERS: At the present time she is on Lasix 40 mg a day, Cozaar 12.5 mg at bedtime, Lopressor 25 mg b.i.d., Protonix 40 mg a day. REVIEW OF LABS: From yesterday, hematocrit 35, hemoglobin 10. Electrolytes today: Sodium 134, potassium 3.4, chloride 99, BUN 17, creatinine 0.8. AST was 94, ALT was 139. ProBNP 2424. cc: Tom Rick MD
[2019-03-12] MEDS: LASIX IV SCH (10:21)
[2019-03-12] MEDS: LOPRESSOR PO SCH ×2 (10:22→21:27)
[2019-03-12] MEDS: PROTONIX PO SCH (10:26)
[2019-03-12 13:10] LABS: HEPATITIS PROFILE ACUTE SEE COMMENTS
[2019-03-12] MEDS ORDERED: POTASSIUM CHLORIDE 20% LIQUID PO ONE (16:54)
[2019-03-12] MEDS ORDERED: MAGNESIUM SULFATE 2 GM/S.W.I. 2 GM/50 ML IVPB IV ONE (16:54)
[2019-03-12] MEDS: COZAAR PO SCH (21:27)
[2019-03-12] MEDS: ZOFRAN IV PRN (21:28)
[2019-03-13] MEDS: PROTONIX PO SCH (06:21)
[2019-03-13 07:02] LABS: AGAP 13; BUN 15 mg/dL (8-22); CALCIUM 8.6 mg/dL (8.8-10.2); CHLORIDE 104 mmol/L (98-107); COSMO 279; CREATININE 0.8 mg/dL (0.5-0.9); ESTIMATED GFR > 60; GLUCOSE 103 mg/dL (70-104); MAGNESIUM 2.1 mg/dL (1.5-2.7); POTASSIUM 4.3 mmol/L (3.5-5.1); SODIUM 139 mmol/L (136-145); TCO2 22 mmol/L (25-35)
--- NOTE | 2019-03-13 07:30 | CARDIOLOGY PROGRESS NOTE ---
DATE: 03/12/2019 SUBJECTIVE: The patient has continued to have periodic bouts of abdominal pain. She is not having any orthopnea. OBJECTIVE: Afebrile. Heart rate 86, blood pressure 117/65. I's and O's have somewhat limited data, but overall appears negative. General: She is in no acute distress. Cardiovascular: She sounds to be in a regular rate and rhythm. She has no murmurs. She has no S3. She has no lower extremity edema. Lungs: Chest is clear bilaterally. No increased work of breathing. Abdomen: Soft and nontender. PERTINENT DATA: Sodium is 134, potassium 3.4, BUN 17, creatinine 0.8. Mag level is 1.8. ProBNP is 2424 which is down from 5094. ASSESSMENT: The patient is a 58-year-old female with a new onset of heart failure. PLAN: Tentatively, we will proceed with cardiac catheterization on Sunday. She is currently on a low dose of ARB as well as beta kari and some IV Lasix. Laboratories to be checked in the morning. Her potassium and magnesium will be repleted. cc: Mick Em MD
[2019-03-13] MEDS: LASIX IV SCH (08:19)
[2019-03-13] MEDS: LOPRESSOR PO SCH (08:19)
[2019-03-13] MEDS: ROCEPHIN 1 GM in NS 50 ML IV SCH (09:25)
--- NOTE | 2019-03-13 09:29 | PROGRESS NOTE ---
DATE: 03/13/2019 OBJECTIVE: Ms Rose is feeling better. The nausea is better and not having any discomfort. She is planning on getting a Myoview GXT or Lexiscan GXT today, nuclear scan. Suspect she is having a non ST wave elevation myocardial infarction. She remains afebrile. OBJECTIVE: Vital Signs: Temperature 97.4 degrees, pulse 72, respirations 16, blood pressure 92/72. HEENT: Pupils are equal and round. Lungs: Clear in all lung [place]. Cardiovascular: Regular rhythm and rate without murmur or S3. Urine output is 2500 mL. ASSESSMENT AND PLAN: 1. Thinking about a heart catheterization tomorrow. She is currently on low dose of ARB as well as beta kari. Potassium and magnesium have been repleted. 2. Profound cardiomyopathy, ejection fraction 10 to 15 percent, severe mitral regurgitation, and wall motion suggestive of ischemia. 3. Do not think she is having symptomatic cholecystitis. General surgery has evaluated. 4. History of peptic ulcer disease in the past, aware. 5. History of drug use in the past. CURRENT MEDICATIONS: 1. Lasix 40 mg a day. 2. Cozaar 12.5 mg p.o. at bedtime. 3. Metoprolol 25 mg b.i.d. 4. Protonix 40 mg daily. 5. I started her on some ceftriaxone because she is complaining of some gum irritation and gingivitis, so we will put her on 1 g IV q.24 hours. She does have poor dentition. 6. We supplemented her magnesium and potassium. LABORATORY DATA: On the , CBC was white count was 6430, hematocrit 35, platelet count 228,000. Chemistry: Sodium 139, potassium 4.3, chloride 104, BUN 15, creatinine 0.8. ProBNP 2424 on the , and today 1803. cc: Tom Rick MD
[2019-03-13] MEDS: ZOFRAN IV PRN ×3 (09:38→21:27)
[2019-03-13] MEDS: LASIX PO SCH (09:45)
--- NOTE | 2019-03-13 15:40 | CARDIOLOGY PROGRESS NOTE ---
DATE: 03/13/2019 SUBJECTIVE: The patient reports she actually feels better today. Her breathing has improved overall. Her abdominal pain is still present but is much improved. PHYSICAL EXAMINATION: Her weight is down from 220 pounds on admit to 215 today. She is afebrile, heart rate is 72, blood pressure 92/72. She has had some systolics in the 80s and 90s. Her I's and O's thus far are negative. Total of slightly over a L although intake and output is poorly recorded. Generally she is in no acute distress. Cardiovascular she sounds to be in a regular rate and rhythm. She does not have any murmurs there is no S3. She has no lower extremity edema. Her chest exam is clear bilaterally. She has no increased work of breathing. Abdomen is soft, mild tenderness to palpation particularly in the right upper quadrant. PERTINENT DATA: Sodium 139, potassium 4.3, BUN 15, creatinine 0.8 which has been stable. Her magnesium level is 2.1. Her proBNP is 1803 which is down from 5094. ASSESSMENT: Ms Rose is a 58-year-old female who presented with new onset heart failure. PLAN: At this point, we will proceed with cardiac catheterization tomorrow. I will change her over to oral Lasix today, continue on the losartan and the metoprolol. Discussion with the family yesterday revealed that the patient had a previous history of crack cocaine usage so that certainly could be a possible etiology to her heart failure. Coronary angiography to be done tomorrow to delineate her coronary anatomy. cc: Mick Em MD
[2019-03-14] MEDS: LOPRESSOR PO SCH ×3 (00:38→22:13)
[2019-03-14] MEDS: COZAAR PO SCH ×2 (00:38→22:13)
[2019-03-14] MEDS: PROTONIX PO SCH (06:46)
[2019-03-14 07:12] LABS: BASO# 0.04 X1000 (0.0-0.2); EOS% 4.8 % (0.0-10.0); HEMATOCRIT 33.7 % (37.0-47.0); HEMOGLOBIN 10.2 g/dL (12.0-16.0); IMM GRAN# 0.02 X1000 (0.0-0.04); IMM GRAN% 0.5 % (0.0-0.5); LYMPH# 1.13 X1000 (1.2-3.4); LYMPH% 27.2 % (20.5-51.1); MCH 28.5 PG (27-31); MCHC 30.3 g/dL (33-37); MCV 94.1 FL (81-99); MONO# 0.48 X1000 (0.11-0.59); MONO% 11.6 % (1.7-9.3); MPV 11.6 FL (7.4-10.4); NEUT# 2.28 X1000 (1.4-6.5); NEUT% 54.9 % (42.2-75.2); PLT 207 X1000 (130-400); RBC 3.58 XMIL (4.2-5.4); RDW 16.2 % (11.5-14.5); WBC 4.15 X1000 (4.8-10.8)
[2019-03-14 07:30] LABS: SODIUM 134 mmol/L (136-145)
[2019-03-14 07:47] LABS: AGAP 13; BUN 13 mg/dL (8-22); CALCIUM 8.2 mg/dL (8.8-10.2); CHLORIDE 102 mmol/L (98-107); COSMO 270; CREATININE 0.9 mg/dL (0.5-0.9); ESTIMATED GFR > 60; GLUCOSE 99 mg/dL (70-104); POTASSIUM 4.2 mmol/L (3.5-5.1); TCO2 20 mmol/L (25-35)
[2019-03-14 08:13] LABS: ALB/GLOB RATIO 1.3; ALBUMIN 3.1 g/dL (3.5-5.0); DIRECT BILIRUBIN 0.2 mg/dL (0.00-0.20); TOTAL BILIRUBIN 0.61 mg/dL (0.20-1.00); TOTAL PROTEIN 5.5 g/dL (6.3-8.3)
[2019-03-14 08:27] LABS: INR 1.17; PROTIME 15.1 Seconds (11.0-16.0)
[2019-03-14 08:28] LABS: PTT 27.6 Seconds (22.3-41.8)
[2019-03-14] MEDS: LASIX PO SCH (09:22)
[2019-03-14] MEDS: ZOFRAN IV PRN (09:23)
[2019-03-14] MEDS: ROCEPHIN 1 GM in NS 50 ML IV SCH (09:24)
--- NOTE | 2019-03-14 09:59 | PROGRESS NOTE ---
DATE: 03/14/2019 SUBJECTIVE: Ms. Rose is feeling better. She has a little bit of nausea. She did not have a good night, did not sleep much last night. She is planning on getting a left heart catheterization today. OBJECTIVE: Temperature 98 degrees, pulse 76, respirations 17, and blood pressure 98/70. Pupils are equal and round. Lungs are clear in all lung [place]. Cardiovascular exam with regular rhythm and rate without murmur or S3. Abdomen is soft. Skin is warm and dry. Urine output is 950 mL. ASSESSMENT AND PLAN: 1. Left heart catheterization today. I suspect she had a non [id number] myocardial infarction and active cardiac ischemia. 2. Profound cardiomyopathy with ejection fraction 10 to 15%. 3. I do not think she is having symptomatic cholecystitis. 4. Peptic ulcer disease in the past. Aware. 5. History of drug use in the past. Aware. REVIEW OF ORDERS: 1. Lasix 40 mg a day. 2. Cozaar 12.5 mg at bedtime. 3. Lopressor 25 mg b.i.d. 4. Protonix 40 mg a day. 5. Also, her gums are hurting with a little bit of gingivitis so we have given ceftriaxone 1 g daily. Hopefully, this will help. cc: Tom Rick MD
[2019-03-14] MEDS ORDERED: ISOPTIN ONE (12:19)
[2019-03-14] MEDS ORDERED: HEPARIN 1000 UNITS/NS 2,000 UNIT/1,000 ML IV.SOLN ONE (12:20)
[2019-03-14] MEDS ORDERED: CLAVE PUMP SET NO FILTER 12260 ONE (13:03)
[2019-03-14] MEDS ORDERED: NS 1,000 ML ONE (13:05)
[2019-03-14] MEDS ORDERED: CLAVE TWINSITE 32 IN 11959 ONE (13:05)
[2019-03-14] MEDS ORDERED: VERSED ONE (13:20)
[2019-03-14] MEDS ORDERED: LASIX IV ONE (15:08)
--- NOTE | 2019-03-14 15:24 | EKG Report ---
Test Performed on : 03/14/2019 2:46:07 PM Test Reason : post cath Blood Pressure : / mmHG Vent. Rate : 074 BPM Atrial Rate : 074 BPM P-R Int : 162 ms QRS Dur : 168 ms QT Int : 464 ms P-R-T Axes : 066 -10 110 degrees QTc Int : 515 ms Normal sinus rhythm. Left bundle branch block Abnormal ECG When compared with ECG of 12-MAR-2019 06:47, No significant change was found Confirmed by Eliseo MELGAR, P.J.M ([id number]) on 03/14/2019 5:41:11 PM
[2019-03-14 18:43] LABS: INR 1.21; PROTIME 15.5 Seconds (11.0-16.0)
[2019-03-15] MEDS: PROTONIX PO SCH ×2 (06:00→06:01)
[2019-03-15 06:21] LABS: AGAP 11; BUN 15 mg/dL (8-22); CALCIUM 8.8 mg/dL (8.8-10.2); CHLORIDE 102 mmol/L (98-107); COSMO 277; CREATININE 0.9 mg/dL (0.5-0.9); ESTIMATED GFR > 60; GLUCOSE 112 mg/dL (70-104); MAGNESIUM 1.9 mg/dL (1.5-2.7); POTASSIUM 3.8 mmol/L (3.5-5.1); SODIUM 138 mmol/L (136-145); TCO2 25 mmol/L (25-35)
[2019-03-15] MEDS: ROCEPHIN 1 GM in NS 50 ML IV SCH (08:37)
[2019-03-15] MEDS: LASIX PO SCH (08:38)
[2019-03-15] MEDS: LOPRESSOR PO SCH (08:38)
--- NOTE | 2019-03-15 10:56 | PROGRESS NOTE ---
DATE: 03/15/2019 SUBJECTIVE: She is resting, sleeping comfortably. She was easy to arouse. No further chest pain. No nausea at the present time. OBJECTIVE: Vital signs: Temperature 97.5 degrees, pulse 79, respirations 18, blood pressure 116/78. HEENT: Pupils are equal and round. Lungs: Clear in all lung [place]. Cardiovascular: Regular rhythm and rate without murmur or S3. Abdomen: Soft, nondistended. ASSESSMENT AND PLAN: Heart catheterization performed. I do not have the results of that. She has not had any further chest pain. MEDICATIONS: She is on Lasix 40 mg a day, Cozaar 12.5 mg at bedtime, Lopressor 25 mg b.i.d., Protonix 40 mg a day, ceftriaxone 1 g IV q.24 hours. Continue her present medication, cardiac diet and discuss with Cardiology what they found. cc: Tom Rick MD
[2019-03-15 12:31] VITALS: BP 121/79
[2019-03-15] MEDS: LASIX IV ONE ×2 (12:50→13:32)
[2019-03-15] MEDS ORDERED: FLU VACCINE IM ONE (13:02)
--- NOTE | 2019-03-15 13:20 | DISCHARGE SUMMARY ---
ADMISSION DATE: 03/10/2019 DISCHARGE DATE: 03/15/2019 This is a 58-year-old no primary care physician. She had a history of herpes as well as peptic ulcer disease. She is not a good historian. However, she indicated that a couple weeks she has been back and forth with medical clinic because of respiratory, GI symptoms decided at [place] came to [place] with nausea, vomiting, diarrhea, abdominal pain described as some dysuria along with dizziness. She was presented to the emergency room with a heart rate of 158. Patient did receive 5 mg IV Lopressor, resolution of tachycardia. She had a CT of her abdomen done showed evidence of mild diffuse gallbladder wall thickening and so there is consideration whether she is having active cholecystitis. She was sent to [facility]. ADMISSION DIAGNOSIS: 1. Acute gastroenteritis versus cholecystitis and I think she may have had a viral gastroenteritis. Her nausea and loose stools seemed to resolve. 2. Paroxysmal tachycardia, left bundle branch block. Concerned that her troponin was elevated so concerned she was having some ischemia so they did a left heart catheterization and they found minimal disease adjusted her medications. She had no further discomfort and remained stable and so from Cardiology standpoint she could be discharged and patient wanted to go home. 3. Elevated D-dimer. Chest CT with no evidence of pulmonary thromboembolism. 4. Congestive heart failure based on x-ray finding, CT of the chest finding as well as proBNP was obtained as well as 2D echocardiogram. The patient had an echocardiogram demonstrated ejection fraction 10 to 15 percent, moderate to severe mitral regurgitation, dilated left ventricle so adjusted some of her medications after catheterization was felt this is a nonischemic cardiomyopathy and felt clinically she could go home. DISCHARGE MEDICATIONS: She will be on Lasix 40 mg p.o. q.a.m., Cozaar 25 mg at bedtime, Lopressor 25 mg b.i.d. and will give her some Protonix daily for 4 weeks. cc: Tom Rick MD
[2019-03-15] MEDS ORDERED: COZAAR PO SCH (21:00)
--- NOTE | 2019-03-15 21:22 | CARDIOLOGY PROGRESS NOTE ---
DATE: 03/15/2019 SUBJECTIVE: The patient reports she is doing well this morning. She has no pain complaints. No shortness of breath. Her right lower extremity at the catheterization site is nontender. PHYSICAL: She is afebrile, heart rate 79, blood pressure 116/76. General: She is in no acute distress. Cardiovascular: She sounds to be in a regular rate and rhythm. She has no obvious murmurs. She has no lower extremity edema. She has warm and well-perfused lower extremities. Chest: Clear bilaterally. She has no increased work of breathing. Abdomen: Soft, nontender. PERTINENT DATA: [facility] she had a chemistry today showing a sodium 138, potassium 3.8, BUN 15, creatinine 0.9. Her proBNP is 2880 which is a bit up from yesterday but markedly down from admission. ASSESSMENT: Ms. Rose is a 58-year-old female who underwent cardiac catheterization today. She had a new onset of a nonischemic cardiomyopathy. PLAN: At this point, she has nonobstructive coronary disease. We will proceed with giving her 1 dose of IV Lasix this afternoon but she could still be discharged today. I have escalated her ARB to 25 mg of losartan. She continues on a beta-kari for the time being. cc: Mick Em MD
--- NOTE | 2019-03-17 08:42 | CARDIAC CATH REPORT ---
DATE: 03/14/2019 INDICATION: Systolic heart failure, new onset. PROCEDURES PERFORMED: 1. Left heart catheterization. 2. Selective coronary angiography. PROCEDURE IN DETAIL: Ms. Rose was brought to the catheterization laboratory in fasting state. Informed consent was obtained. Prepped in usual fashion. She initially had attempt at right radial catheterization but could not localize the artery due to a weak pulse. She then had a 5- Persian sheath placed via modified Seldinger technique through the right femoral artery. Sheaths and catheters were introduced. Hemodynamic measurements made in the ascending thoracic aorta. Coronary angiography was performed in multiple views using JL-4 and JR-4 diagnostic catheters. Left heart catheterization was performed using the JR-4. At the conclusion of the procedure, all sheaths and catheters were removed. Pressure was held. Good hemostasis. 5-10 mL of blood loss. Used 70 mL of IV contrast. No apparent complications. FINDINGS: 1. The left main appears normal and originates from the left coronary cusp. 2. Left anterior descending and circumflex vessels both originate from the left main. The left anterior descending has proximal minimal luminal irregularities with a normal mid and distal vessel. The circumflex is normal throughout its course. 3. Right coronary artery originates from the right coronary cusp. It appears to be angiographically normal. 4. The aortic blood pressure is 108/75. Left ventricular pressure 100/12 with an LVEDP of 20. ASSESSMENT: Ms. Milton reis is a 58-year-old female who presented with new onset heart failure. PLAN: At this point, she has a nonischemic cardiomyopathy. We will continue to try to titrate medications. She has been relatively hypotensive and we have tried to continue to diurese her. Her LVEDP is 20, so we will give her another 40 of IV Lasix today and recheck her laboratories in the morning. I believe she is approaching the point of hospital discharge. She continues on losartan at a low dose of 12.5 mg at bedtime. cc: Mick Em MD
== END 2019-03-15 14:20 | disposition home or self-care (01) | DRG 287 ==
LOC: P.ED 19:57 → SUATTDRO 03-10 02:47 → 4N 03-10 02:47 → 2N 03-14 14:27
PROVIDERS: ATTEND Emergency Medicine